=== PATIENT | female | born 1965 | race Two or more races ===

== ENCOUNTER → 2017-04-21 | Outpatient (CLI) | payer OTHER | LOC: FIMAGING 11:34 | PROVIDERS: ATTEND Internal Medicine | DX: Z12.31 Encounter for screening mammogram for malignant neoplasm of breast (principal) | CPT/HCPCS: G0202 ==

== ENCOUNTER → 2018-02-12 | Outpatient (CLI) | payer OTHER | LOC: FIMAGING 10:57 | PROVIDERS: ATTEND Internal Medicine | DX: D25.9 Leiomyoma of uterus, unspecified (principal); N85.4 Malposition of uterus ==

== ENCOUNTER → 2018-05-28 | Outpatient (CLI) | payer OTHER | LOC: FIMAGING 09:44 | PROVIDERS: ATTEND Internal Medicine | DX: Z12.31 Encounter for screening mammogram for malignant neoplasm of breast (principal) ==

== ENCOUNTER → 2018-07-03 | Outpatient (CLI) | payer OTHER | LOC: FIMAGING 10:04 | PROVIDERS: ATTEND Internal Medicine | DX: R92.8 Other abnormal and inconclusive findings on diagnostic imaging of breast (principal) ==